=== PATIENT | male | born 1945 | race Caucasian/White ===

== ENCOUNTER → 2018-11-12 | Outpatient (CLI) | payer MEDICARE, BC ==
[~2018-11-12] MED LIST: ALPR1TAB2 PO; ASPI-650 PO; ATEN100T PO; ATOR20TA17 PO; CELE200C PO; COU5 PO; COU75 PO; COUMADIN; DIGO250T6 PO; LEVO-86 PO; PERCOCET PO
== END | disposition home or self-care (01) ==
LOC: VAS 16:04
PROVIDERS: ATTEND Internal Medicine
DX: R22.41 Localized swelling, mass and lump, right lower limb (principal)
CPT/HCPCS: 93971